=== PATIENT | female | born 1980 | race Asian ===

== ENCOUNTER 2020-05-10 17:05 | Emergency (ER) | payer OTHER ==
[~2020-05-10] VITALS: Ht 165.1 cm; Wt 90.7 kg
[2020-05-10] MEDS ORDERED: GABAPENTIN100 MG ORAL (17:18)
[2020-05-10] MEDS ORDERED: IBUPROFEN600 M1 ORAL (17:18)
[2020-05-10] MEDS ORDERED: Tylenol #3 tab (300mg/30mg) ORAL ONE (17:30)
--- NOTE | 2020-05-10 17:40 | Emergency Room Report ---
History of Present Illness General Chief Complaint: Multiple Trauma/Fall Source: Patient Present Illness HPI 39-year-old female presents to the emergency department complaining of 7 out of 10 severity pain that is localized to the anterior portion of the left knee, superficial abrasion to the right elbow, and exacerbation of her sciatica. Patient reports she was at work when she had mechanical trip and fall. She reports she fell forward landing on her knee. She denies pain in the hands or wrists. Patient denies hitting her head or having a loss of consciousness. She denies notable instability of the left knee. Patient reports pain is exacerbated upon weightbearing and ambulating. She reports she is able to ambulate. She denies bleeding and states that her tetanus vaccination is up-to- date. Patient reports that she had ibuprofen approximately 15 minutes prior to when the injury occurred. Patient states that she took ibuprofen for her sciatica symptoms. Denies numbness tingling or loss of sensation or gross motor movements of the extremities, incontinence of bowel or bladder. Denies CP , Palpitations, LOC, AMS, dizziness, Changes in Vision, weakness or a sudden severe headache. 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: No COVID-19 Screening: Negative COVID-19 COVID-19 Testing Source: [facility] Patient History Past Medical History: see triage record Past Surgical History: none Pertinent Family History: none Last Menstrual Period: 05/02/20 Now: No Reviewed Nursing Documentation: PMH: Agreed; PSxH: Agreed Nursing Documentation-PMH Past Medical History: No History, Except For Review of Systems All Other Systems: negative except mentioned in HPI Physical Exam Vital Signs Date Time Temp Pulse Resp B/P (MAP) Pulse Ox O2 Delivery O2 Flow Rate FiO2 05/10/20 17:12 97.0 85 14 145/95 (112) 99 Room Air Sp02 EP Interpretation: reviewed, normal General Appearance: no apparent distress, alert, GCS 15, non-toxic Head: normocephalic, atraumatic Eyes: bilateral eye normal inspection, bilateral eye PERRL ENT: hearing grossly normal, normal voice Neck: full range of motion, no bony tend Respiratory: lungs clear, normal breath sounds, speaking full sentences Cardiovascular #1: regular rate, rhythm, normal capillary refill Cardiovascular #2: 2+ dorsalis pedis (L) - post tib. Musculoskeletal: normal range of motion, gait/station normal, tender - Anterior aspect of the left knee. Negative anterior posterior drawer signs. No increased laxity on exam. No bruising, swelling palpable effusion, erythema or obvious deformity. Patient have some lumbar paraspinal tenderness to palpation on the left side. No midline spinous process tenderness, step-off or obvious deformities of the cervical, thoracic or lumbar spine. Neurologic: alert, motor strength/tone normal, oriented x3, sensory intact, responsive, speech normal Psychiatric: judgement/insight normal Skin: abrasion - Superficial abrasion to the right elbow. Medical Decision Making PA Attestation Dr. West Is my supervising Physician whom patient management has been discussed with. Diagnostic Impression: Primary Impression: Contusion of left knee Qualified Codes: S80.02XA - Contusion of left knee, initial encounter Additional Impressions: Abrasion of elbow Qualified Codes: S50.311A - Abrasion of right elbow, initial encounter Acute exacerbation of chronic low back pain ER Course 39-year-old female presents to the emergency department complaining of 7 out of 10 severity pain that is localized to the anterior portion of the left knee, superficial abrasion to the right elbow, and exacerbation of her sciatica. Patient reports she was at work when she had mechanical trip and fall. She reports she fell forward landing on her knee. She denies pain in the hands or wrists. Patient denies hitting her head or having a loss of consciousness. She denies notable instability of the left knee. Patient reports pain is exacerbated upon weightbearing and ambulating. She reports she is able to ambulate. She denies bleeding and states that her tetanus vaccination is up-to- date. Patient reports that she had ibuprofen approximately 15 minutes prior to when the injury occurred. Patient states that she took ibuprofen for her sciatica symptoms. Denies numbness tingling or loss of sensation or gross motor movements of the extremities, incontinence of bowel or bladder. Denies CP , Palpitations, LOC, AMS, dizziness, Changes in Vision, weakness or a sudden severe headache. Ddx considered but are not limited to Fracture, dislocation, contusion, Sprain/ Strain/Spasm,Acute head injury, concussion, abrasion, laceration, omental or meniscal injury. Vital signs: are WNL, pt. is afebrile H&PE are most consistent with musculoskeletal injury will perform imaging to r/ o fractures/dislocations. ORDERS: - X-ray Left Knee 3 - negative for fx, Dislocation, or significant soft tissue injury, per preliminary read in ED, and signed by FIDEL Adan, my supervising physician has reviewed, and agrees with my interpretation. ED INTERVENTIONS: - Tylenol # 3 PO -Lidoderm TP -Amadeo wrap applied by eeg tech. Pt. remains neurovascularly intact. -Patient is provided with a cane and instructed on its use -I do not identify an emergent condition at this time. With current presentation , pt. is stable for close outpatient follow up and conservative treatment. D/ w pt. to return promptly to ED with worsening or new symptoms.- Pt. verbalizes' understanding and agreement with proposed treatment plan. DISCHARGE: At this time pt. is stable for d/c to home. Will provide printed patient care instructions, and any necessary prescriptions. Care plan and follow up instructions have been discussed with the patient prior to discharge. Other X-Ray Diagnostic Results Other X-Ray Diagnostic Results : X-Ray ordered: Left knee # of Views/Limited Vs Complete: 3 View Indication: Pain EP Interpretation: Yes PA Xray: Interpretation reviewed, by supervising MD, and agrees with findings. Interpretation: no dislocation, no soft tissue swelling, no fractures Impression: No acute disease Electronically Signed by: Moni Adan PA-C Last Vital Signs Date Time Temp Pulse Resp B/P (MAP) Pulse Ox O2 Delivery O2 Flow Rate FiO2 05/10/20 17:12 97.0 85 14 145/95 (112) 99 Room Air Status: improved Disposition: HOME, SELF-CARE Condition: Stable Departure Forms: Return to Work Return to Work Date: May 14, 2020 Other Restrictions: May return Sooner if Symptoms have resolved. Return to Full Activity: May 19, 2020 Work Restrictions: No Heavy Lifting, No Prolonged Standing Additional Instructions: Take medications as directed. Do not drink alcohol, drive, or operate heavy machinery while taking Robaxin ( Muscle Relaxers) as this may cause drowsiness. Follow up with a Worker's Comp. Primary Care Provider in 3-5 days, even if your symptoms have resolved. ORTHOPEDIC EVAL if symptoms persist. Return sooner to ED if new symptoms occur, or current symptoms become worse. - Please note that this Emergency Department Report was dictated using [employer] technology software, occasionally this can lead to erroneous entry secondary to interpretation by the dictation equipment. Moni Adan May 10, 2020 17:40
--- NOTE | 2020-05-10 17:46 | NUR ---
ED Nurse Note:pt. c/o left knee pain, s/p fall, pt. is ambulatory, no diziness reported
--- NOTE | 2020-05-10 18:11 | Diagnostic Imaging Report ---
EXAM: XR Left Knee, 3 Views CLINICAL HISTORY: PAIN TECHNIQUE: Three views of the left knee. COMPARISON: No relevant prior studies available. FINDINGS: Bones/joints: Unremarkable. No acute fracture. No dislocation. Soft tissues: Unremarkable. Other findings: No acute abnormality seen. Unremarkable study. IMPRESSION: 1. No acute abnormality seen. 2. Unremarkable study.
[2020-05-10] MEDS ORDERED: ROBAXIN-750750 MG PO (18:38)
[2020-05-10] MEDS ORDERED: BACITRACIN15 GM TOPIC (18:38)
[2020-05-10] MEDS ORDERED: TYLENOL EXTRA500 MG ORAL (18:38)
[2020-05-10 18:50] VITALS: BP 140/88
--- NOTE | 2020-05-10 18:50 | NUR ---
ED Nurse Note:pt. received knee wrap and cratchies Pt cleared by health care Provider for discharge. DC instructions/prescription/ work miscomp was given and explained to pt and verbalized understanding of teachings. All medical deviecs such as ID band removed. Pt is AAO x4, ambulatory and left with all personal belongings.
== END 2020-05-10 18:50 | disposition home or self-care (01) ==
LOC: EMR 17:39
DX: S80.02XA Contusion of left knee, initial encounter (principal); S50.311A Abrasion of right elbow, initial encounter; G89.29 Other chronic pain; M54.5 Low back pain; W01.0XXA Fall on same level from slipping, tripping and stumbling without subsequent striking against object, initial encounter; Y92.9 Unspecified place or not applicable
CPT/HCPCS: 99283